=== PATIENT | female | born 1975 | race Caucasian/White ===

== ENCOUNTER 2017-01-28 12:27 | Emergency (ER) | payer OTHER ==
[~2017-01-28] VITALS: Ht 162.6 cm; Wt 69.0 kg
[2017-01-28 12:33] VITALS: TEMP 36.9; Ht 162.6 cm; Wt 69.0 kg
[2017-01-28] MEDS ORDERED: LEVO25TA5 PO (12:53)
--- NOTE | 2017-01-28 13:24 | DIAGNOSTIC IMAGING REPORT ---
LEFT KNEE 3 VIEWS HISTORY: left knee pain COMPARISON: None. FINDINGS: There is no fracture or dislocation. Soft tissues are unremarkable. No radiopaque foreign bodies. Small to moderate knee effusion. IMPRESSION: No fractures. Small to moderate knee effusion. Electronically signed by: Milan Ly M.D. 01/28/2017 1:23 PM Dictated Date/Time: 01/28/2017 1:22 PM
--- NOTE | 2017-01-28 13:49 | EMERGENCY ROOM VISIT NOTE ---
ED Visit Note First contact with patient: 12:38 CHIEF COMPLAINT: knee pain HISTORY OF PRESENT ILLNESS: This 41-year-old female patient presents to the emergency department ambulatory after sustaining an injury to the left knee when she fell at work yesterday. 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 She states that her leg was planted and she twisted and fell. The patient denies any other injuries besides their knee. The patient admits to swelling but denies bruising. There is pain over the lateral and posterior aspects. They rate the pain as sharp and 6/10. The patient states they are able to walk on it. No numbness or tingling. No previous injuries to this knee. No ankle, foot or hip pain. REVIEW OF SYSTEMS: A 6 system review of systems was completed with positives and pertinent negatives listed in the HPI. ALLERGIES: Metronidazole MEDICATIONS: None PMH: Hypothyroidism SOCIAL HISTORY: The patient lives locally. She is employed PHYSICAL EXAM: Vital Signs: Reviewed Nurse's notes, vital signs stable. GENERAL : As a 41-year-old female, no acute distress, but appears in pain, well- developed, well-nourished. MENTAL STATUS: Alert, oriented to person place and time, and cooperative. MUSCULOSKELETAL: The left knee is moderately swollen. There is no ecchymosis. There is moderate joint effusion present. The patient is tender over the lateral aspect and posterior aspect. There is lateral joint line tenderness. The patella does not subluxate. Range of motion is intact5. Strength of the quads and hamstrings is 5/5. Summer's is negative. Sarah's and Anterior Drawer tests are negative for obvious laxity. There is no obvious laxity with varus and valgus stressing. The foot and toes are warm and well- perfused. Dorsalis pedis pulse 2+. Sensation to pain and light touch is intact. Capillary refill less than 2 seconds. EMERGENCY DEPARTMENT COURSE: I examined the patient. X-rays of the left knee were reviewed by myself and read by radiology and reveal effusion but no fracture. The patient was placed in a knee immobilizer under my direction and the position was satisfactory. The patient was instructed on the use of crutches. She declined pain medication The patient was discharged home in good condition. DISCHARGE INSTRUCTIONS: Ice and elevate knee for swelling and pain. Wear knee immobilizer when up and about. Use crutches - minimal weight on foot. Ibuprofen 600 mg 6 hrs for pain. Follow-up with Orthopedics for further evaluation and treatment - call for appointment. LEFT KNEE 3 VIEWS HISTORY: left knee pain COMPARISON: None. FINDINGS: There is no fracture or dislocation. Soft tissues are unremarkable. No radiopaque foreign bodies. Small to moderate knee effusion. IMPRESSION: No fractures. Small to moderate knee effusion. Current/Historical Medications Scheduled Levothyroxine Sodium (Levothyroxine Sodium), Unknown Dose PO DAILY Allergies Coded Allergies: Metronidazole (Unverified Allergy, Unknown, ., 01/28/17) Vital Signs Date Time Temp Pulse Resp B/P (MAP) Pulse Ox O2 Delivery O2 Flow Rate FiO2 01/28/17 14:19 80 20 150/80 98 01/28/17 12:33 36.9 92 16 144/95 100 Room Air Departure Information Impression Primary Impression: Knee effusion, left Additional Impressions: Knee injury Work related injury Dispostion Home / Self-Care Condition GOOD Referrals No Doctor, Assigned (PCP) Dc Pemberton M.D. Patient Instructions ED Effusion Knee, ED Knee Injury Cruciate Ligament, [facility] Additional Instructions Ice and elevate knee for swelling and pain. Wear knee immobilizer when up and about. Use crutches - minimal weight on foot. Ibuprofen 600 mg 6 hrs for pain. Follow-up with Orthopedics for further evaluation and treatment - call for appointment. Problem Qualifiers
[2017-01-28 14:19] VITALS: BP 150/80; PULSE 80; O2SAT 98
== END 2017-01-28 14:21 | disposition home or self-care (01) ==
LOC: C.EDB 12:29 → C.EDD 14:21
DX: S89.92XA Unspecified injury of left lower leg, initial encounter (principal); W19.XXXA Unspecified fall, initial encounter; Y92.89 Other specified places as the place of occurrence of the external cause; Y99.0 Civilian activity done for income or pay; M25.462 Effusion, left knee; E03.9 Hypothyroidism, unspecified; Z79.899 Other long term (current) drug therapy; Z88.8 Allergy status to other drugs, medicaments and biological substances